=== PATIENT | male | born 1955 | race American Indian/Alaskan Native ===

== ENCOUNTER 2016-10-12 11:42 | Emergency (ER) | payer SELFPAY ==
[2016-10-12 13:16] LABS: Hematocrit 41.6 % (35.5-45.6); Hemoglobin 13.7 gm/dl (11.8-15.2); Mean Corpuscular HGB Conc 33 % (32-34); Mean Corpuscular Hemoglobin 29 pg (28-32); Mean Corpuscular Volume 89 fl (84-94); Platelet Count 175 K/mm3 (140-440); Red Cell Distribution Width 16.3 % (13.2-15.2); White Blood Count 4.6 K/mm3 (4.5-11.0)
[2016-10-12 13:28] LABS: Anion Gap 15 mmol/L; Blood Urea Nitrogen 27 mg/dL (9-20); Calcium 9.2 mg/dL (8.4-10.2); Carbon Dioxide 26 mmol/L (22-30); Chloride 101.5 mmol/L (98-107); Glucose 84 mg/dL (75-100); Potassium 4.7 mmol/L (3.6-5.0); Sodium 138 mmol/L (137-145)
[2016-10-12 13:50] LABS: Blastocytes % (Manual) 0 %
[2016-10-12 13:51] LABS: Anisocytosis 1+; Diff Status Complete; Giant Platelets Few; Ovalocytes 1+
[2016-10-12] MEDS ORDERED: PERCOCET 5/325 PO ONE (16:48)
[2016-10-12] MEDS ORDERED: CATAPRES PO ONE (16:48)
--- NOTE | 2016-10-12 17:36 | Emergency Department Report ---
ED Back Pain/Injury HPI - General Chief Complaint: Chest Pain Stated Complaint: CHEST PAIN Time Seen by Provider: 10/12/16 16:18 Source: patient Limitations: No Limitations - History of Present Illness Initial Comments: 61-year-old male with a past medical history hypertension and cardiac stent presents to the hospital complains of lower back pain and right-sided chest pain. Patient has been having lower back pain. Past 5 days. Pain is constant , aching, rated 10/10 intensity. Pain is with palpation and movement. No alleviating factors. Patient taken lots of NSAIDs/Advil without improvement. Patient denies dysuria, hematuria, leg weakness, numbness, nausea, incontinence , or vomiting. Patient states last night he began having right-sided chest pain with lower back pain episodes. Patient did not have his blood pressure medicine today he cannot recall the name. - Related Data Home Medications Medication Instructions Recorded Confirmed Last Taken Lisinopril [Zestril] 20 mg PO QDAY 10/12/16 10/12/16 10/11/16 Previous Rx's Medication Instructions Recorded Last Taken Type HYDROcodone/APAP 5-325 [Schwertner 1 each PO Q6HR PRN #20 tablet 10/12/16 Unknown Rx 5/325] Allergies Allergy/AdvReac Type Severity Reaction Status Date / Time No Known Allergies Allergy Unverified 10/12/16 11:56 ED Review of Systems ROS: Stated complaint: CHEST PAIN Other details as noted in HPI Comment: All other systems reviewed and negative Other: Constitutional: No fevers chills Eyes: No eye pain visual changes ENT: No ear pain or throat pain Neck: Denies pain Respiratory: Denies cough wheezing shortness of breath Cardiovascular: Denies palpitations, syncope GI: Denies abdominal pain, nausea, vomiting, diarrhea : Denies dysuria, Musculoskeletal: as per hpi Skin: Denies rash, lesions, erythema Neurologic: Denies headache, numbness, weakness Psychiatric: Denies suicidal ideation, hallucinations ED Past Medical Hx - Past Medical History Hx Hypertension: Yes - Surgical History Additional Surgical History: Cardiac Stent - Social History Smoking Status: Never Smoker Substance Use Type: Alcohol - Medications Home Medications: Home Medications Medication Instructions Recorded Confirmed Last Taken Type HYDROcodone/APAP 5-325 [Schwertner 1 each PO Q6HR PRN #20 tablet 10/12/16 Unknown Rx 5/325] Lisinopril [Zestril] 20 mg PO QDAY 10/12/16 10/12/16 10/11/16 History ED Physical Exam - General Limitations: No Limitations - Other Other exam information: General: No limitations, patient is alert in no acute distress Head exam: Atraumatic, normocephalic Eyes exam: Normal appearance ENT: Moist mucous membrane, normal oropharynx Neck exam: Normal inspection, full range of motion, no meningismus nontender Respiratory exam: Clear to auscultation bilateral, no wheezes, rales, crackles Cardiovascular: Normal rate and rhythm, normal heart sounds Abdomen: Soft, nondistended, and nontender, with normal bowel sounds, no rebound, or guarding Extremity: Full range of motion normal inspection no deformity, no calf tenderness or edema Back: Normal Inspection, full range of motion, generalized lower back tenderness across back and midline Neurologic: Alert, oriented x3, cranial nerves intact, no motor or sensory deficit Psychiatric: normal affect, normal mood Skin: Warm, dry, intact ED Course Vital Signs 10/12/16 10/12/16 10/12/16 11:56 15:23 15:28 Temperature 98.6 F Pulse Rate 80 82 74 Respiratory 18 11 L 16 Rate Blood Pressure 174/102 144/86 O2 Sat by Pulse 99 Oximetry 10/12/16 10/12/16 10/12/16 15:30 15:40 15:50 Temperature Pulse Rate 71 74 71 Respiratory 14 16 14 Rate Blood Pressure 145/83 145/83 145/83 O2 Sat by Pulse Oximetry 10/12/16 10/12/16 10/12/16 16:00 16:10 16:20 Temperature Pulse Rate 72 71 79 Respiratory 15 15 16 Rate Blood Pressure 145/83 153/88 153/88 O2 Sat by Pulse Oximetry 10/12/16 10/12/16 10/12/16 16:30 16:40 16:56 Temperature Pulse Rate 69 80 Respiratory 15 21 15 Rate Blood Pressure 153/88 173/100 173/100 O2 Sat by Pulse Oximetry 10/12/16 10/12/16 10/12/16 17:00 17:05 17:31 Temperature Pulse Rate 75 80 78 Respiratory 12 13 Rate Blood Pressure 173/100 171/100 173/120 O2 Sat by Pulse Oximetry 10/12/16 10/12/16 10/12/16 17:40 17:50 18:00 Temperature Pulse Rate 80 75 73 Respiratory 14 13 15 Rate Blood Pressure 173/120 173/120 181/123 O2 Sat by Pulse Oximetry 10/12/16 10/12/16 10/12/16 18:10 18:20 18:44 Temperature Pulse Rate 75 76 82 Respiratory 15 15 16 Rate Blood Pressure 150/93 150/93 112/57 O2 Sat by Pulse Oximetry 10/12/16 18:50 Temperature Pulse Rate 79 Respiratory 14 Rate Blood Pressure 112/57 O2 Sat by Pulse Oximetry - Reevaluation(s) Reevaluation #1: 10/12/16 20:10 PT received Percocet and clonidine with improvement in symptoms. Systolic pressure in the 130s at this time ED Medical Decision Making - Lab Data Result diagrams: 10/12/16 12:38 10/12/16 12:38 Lab Results 10/12/16 10/12/16 10/12/16 Range/Units 12:38 12:38 15:14 WBC 4.6 (4.5-11.0) K/mm3 RBC 4.70 (3.65-5.03) M/mm3 Hgb 13.7 (11.8-15.2) gm/dl Hct 41.6 (35.5-45.6) % MCV 89 (84-94) fl MCH 29 (28-32) pg MCHC 33 (32-34) % RDW 16.3 H (13.2-15.2) % Plt Count 175 (140-440) K/mm3 Lymph % (Auto) [employer] Machine Setter Add Manual Diff Complete Total Counted 100 Seg Neutrophils % [employer] Setter Seg Neuts % (Manual) 22.0 L (40.0-70.0) % Band Neutrophils % 0 % Lymphocytes % (Manual) 66.0 H (13.4-35.0) % Reactive Lymphs % (Man) 0 % Monocytes % (Manual) 5.0 (0.0-7.3) % Eosinophils % (Manual) 6.0 H (0.0-4.3) % Basophils % (Manual) 1.0 (0.0-1.8) % Metamyelocytes % 0 % Myelocytes % 0 % Promyelocytes % 0 % Blast Cells % 0 % Nucleated RBC % Not Reportable Seg Neutrophils # Man 1.0 L (1.8-7.7) K/mm3 Band Neutrophils # 0.0 K/mm3 Lymphocytes # (Manual) 3.0 (1.2-5.4) K/mm3 Abs React Lymphs (Man) 0.0 K/mm3 Monocytes # (Manual) 0.2 (0.0-0.8) K/mm3 Eosinophils # (Manual) 0.3 (0.0-0.4) K/mm3 Basophils # (Manual) 0.0 (0.0-0.1) K/mm3 Metamyelocytes # 0.0 K/mm3 Myelocytes # 0.0 K/mm3 Promyelocytes # 0.0 K/mm3 Blast Cells # 0.0 K/mm3 WBC Morphology Not Reportable Hypersegmented Neuts Not Reportable Hyposegmented Neuts Not Reportable Hypogranular Neuts Not Reportable Smudge Cells Not Reportable Toxic Granulation Not Reportable Toxic Vacuolation Not Reportable Dohle Bodies Not Reportable Pelger-Huet Anomaly Not Reportable Dana Rods Not Reportable Platelet Estimate Appears normal Clumped Platelets Not Reportable Plt Clumps, EDTA Not Reportable Large Platelets Not Reportable Giant Platelets Few Platelet Satelliting Not Reportable Plt Morphology Comment Not Reportable RBC Morphology Not Reportable Dimorphic RBCs Not Reportable Polychromasia Not Reportable Hypochromasia Not Reportable Poikilocytosis Not Reportable Anisocytosis 1+ Microcytosis Not Reportable Macrocytosis Not Reportable Spherocytes Not Reportable Pappenheimer Bodies Not Reportable Sickle Cells Not Reportable Target Cells Not Reportable Tear Drop Cells Not Reportable Ovalocytes 1+ Helmet Cells Not Reportable [place] Bodies Not Reportable [place] Rings Not Reportable Reji Cells Not Reportable Bite Cells Not Reportable Crenated Cell Not Reportable Elliptocytes Not Reportable Acanthocytes (Spur) Not Reportable Rouleaux Not Reportable Hemoglobin C Crystals Not Reportable Schistocytes Not Reportable Malaria parasites Not Reportable Rufino Bodies Not Reportable Hem Pathologist Commnt No Sodium 138 (137-145) mmol/L Potassium 4.7 (3.6-5.0) mmol/L Chloride 101.5 (98-107) mmol/L Carbon Dioxide 26 (22-30) mmol/L Anion Gap 15 mmol/L BUN 27 H (9-20) mg/dL Creatinine 1.8 H (0.8-1.5) mg/dL Estimated GFR 47 ml/min BUN/Creatinine Ratio 15.00 % Glucose 84 (75-100) mg/dL Calcium 9.2 (8.4-10.2) mg/dL Troponin T < 0.010 < 0.010 (0.00-0.029) ng/mL Urine Color (Yellow) Urine Turbidity (Clear) Urine pH (5.0-7.0) Ur Specific [place] (1.003-1.030) Urine Protein (Negative) mg/dL Urine Glucose (UA) (Negative) mg/dL Urine Ketones (Negative) mg/dL Urine Blood (Negative) Urine Nitrite (Negative) Urine Bilirubin (Negative) Urine Urobilinogen (<2.0) mg/dL Ur Leukocyte Esterase (Negative) Urine WBC (Auto) (0.0-6.0) /HPF Urine RBC (Auto) (0.0-6.0) /HPF U Epithel Cells (Auto) (0-13.0) /HPF Urine Mucus /HPF 10/12/ Range/Units 18:44 WBC (4.5-11.0) K/mm3 RBC (3.65-5.03) M/mm3 Hgb (11.8-15.2) gm/dl Hct (35.5-45.6) % MCV (84-94) fl MCH (28-32) pg MCHC (32-34) % RDW (13.2-15.2) % Plt Count (140-440) K/mm3 Lymph % (Auto) Add Manual Diff Total Counted Seg Neutrophils % Seg Neuts % (Manual) (40.0-70.0) % Band Neutrophils % % Lymphocytes % (Manual) (13.4-35.0) % Reactive Lymphs % (Man) % Monocytes % (Manual) (0.0-7.3) % Eosinophils % (Manual) (0.0-4.3) % Basophils % (Manual) (0.0-1.8) % Metamyelocytes % % Myelocytes % % Promyelocytes % % Blast Cells % % Nucleated RBC % Seg Neutrophils # Man (1.8-7.7) K/mm3 Band Neutrophils # K/mm3 Lymphocytes # (Manual) (1.2-5.4) K/mm3 Abs React Lymphs (Man) K/mm3 Monocytes # (Manual) (0.0-0.8) K/mm3 Eosinophils # (Manual) (0.0-0.4) K/mm3 Basophils # (Manual) (0.0-0.1) K/mm3 Metamyelocytes # K/mm3 Myelocytes # K/mm3 Promyelocytes # K/mm3 Blast Cells # K/mm3 WBC Morphology Hypersegmented Neuts Hyposegmented Neuts Hypogranular Neuts Smudge Cells Toxic Granulation Toxic Vacuolation Dohle Bodies Pelger-Huet Anomaly Dana Rods Platelet Estimate Clumped Platelets Plt Clumps, EDTA Large Platelets Giant Platelets Platelet Satelliting Plt Morphology Comment RBC Morphology Dimorphic RBCs Polychromasia Hypochromasia Poikilocytosis Anisocytosis Microcytosis Macrocytosis Spherocytes Pappenheimer Bodies Sickle Cells Target Cells Tear Drop Cells Ovalocytes Helmet Cells [place] Bodies [place] Rings Reji Cells Bite Cells Crenated Cell Elliptocytes Acanthocytes (Spur) Rouleaux Hemoglobin C Crystals Schistocytes Malaria parasites Rufino Bodies Hem Pathologist Commnt Sodium (137-145) mmol/L Potassium (3.6-5.0) mmol/L Chloride (98-107) mmol/L Carbon Dioxide (22-30) mmol/L Anion Gap mmol/L BUN (9-20) mg/dL Creatinine (0.8-1.5) mg/dL Estimated GFR ml/min BUN/Creatinine Ratio % Glucose (75-100) mg/dL Calcium (8.4-10.2) mg/dL Troponin T (0.00-0.029) ng/mL Urine Color Yellow (Yellow) Urine Turbidity Clear (Clear) Urine pH 6.0 (5.0-7.0) Ur Specific [place] 1.025 (1.003-1.030) Urine Protein 100 mg/dl (Negative) mg/dL Urine Glucose (UA) Neg (Negative) mg/dL Urine Ketones Neg (Negative) mg/dL Urine Blood Neg (Negative) Urine Nitrite Neg (Negative) Urine Bilirubin Neg (Negative) Urine Urobilinogen < 2.0 (<2.0) mg/dL Ur Leukocyte Esterase Neg (Negative) Urine WBC (Auto) 1.0 (0.0-6.0) /HPF Urine RBC (Auto) 2.0 (0.0-6.0) /HPF U Epithel Cells (Auto) < 1.0 (0-13.0) /HPF Urine Mucus Few /HPF - EKG Data -: EKG Interpreted by Me (sinus rate 82, Pac, lvh lat t wave inv) - EKG Data When compared to previous EKG there are: no significant change (compared to 19/05) - Radiology Data Radiology results: report reviewed (ct abd pelvis noncontrast: naf), image reviewed (cxr pa/lat: naf) - Medical Decision Making Patient's CT unremarkable. Patient downplays his right-sided chest pain stating that it is mostly his back that hurts upon requestioning patient states right sided chest pain is mild and only associated with his extreme back pain episodes. EKG is unchanged from previous and patient has 3 negative sets of cardiac enzymes and denies left-sided chest pain or shortness of breath. Back Pain is reproducible on palpation and with movement. Suspect this is musculoskeletal in origin. Patient also has mild renal sufficiency chronicity unknown. No previous creatinine on medical record for comparison but patient denies a known history of renal insufficiency. Patient be advised to follow-up with primary care doctor Dr. Hudson and also provided follow-up for food checker. Patient be advised to stop NSAIDs and will be prescribed hydrocodone instead. She states he takes 5 medications but cannot recall any of the names but does admit to taking aspirin and Plavix. - Differential Diagnosis aortic aneurysm, dissection, musculoskeletal pain, renal colic, UTI Critical Care Time: No Critical care attestation.: If time is entered above; I have spent that time in minutes in the direct care of this critically ill patient, excluding procedure time. ED Disposition Clinical Impression: Renal insufficiency Lower back pain Qualifiers: Chronicity: acute Back pain laterality: bilateral Sciatica presence: without sciatica Qualified Code(s): M54.5 - Low back pain Hypertension Qualifiers: Hypertension type: essential hypertension Qualified Code(s): I10 - Essential ( primary) hypertension Disposition: DISCHARGED TO HOME OR SELFCARE Is pt being admited?: No Does the pt Need Aspirin: No Condition: Stable Instructions: Low Back Strain (ED), Hypertension (ED), Impaired Kidney Function (ED) Additional Instructions: Take the medication as needed for pain. Follow-up with her primary care doctor and the food checker provided for further evaluation of your kidney function. You had provided a copy of the lab results to take to your doctors for follow- up. Avoid NSAIDs, Aleve, and Naprosyn, or Motrin until cleared by your primary care doctor and/or food checker since these medications may worsen kidney function. Prescriptions: HYDROcodone/APAP 5-325 [Schwertner 5/325] 1 each PO Q6HR PRN #20 tablet PRN Reason: Pain Referrals: RENATE VANEGAS MD [Staff Physician] - 3-5 Days (Nephrology) CARMEN HUDSON MD [Staff Physician] - 3-5 Days (primary care doctor ) Time of Disposition: 20:10
--- NOTE | 2016-10-12 18:57 | Cat Scan Report ---
FINAL REPORT PROCEDURE: CT abdomen and pelvis without contrast. TECHNIQUE: Computerized axial tomography of the abdomen and pelvis was performed without intravenous contrast. This study is performed without intravascular contrast material and its sensitivity for abdominal and pelvic pathology, including neoplasms, inflammation, abscess, free fluid, thrombosis, arterial dissection and infarction, is reduced compared with a contrast enhanced study. HISTORY: Right-sided chest and abdomen pain, lower back pain for 5 days. COMPARISON: No prior studies are available for comparison. FINDINGS: The lung bases are clear. There are no pleural effusions. The heart size is mildly enlarged. The liver, spleen and pancreas are grossly normal. The gallbladder is present. The adrenal glands are not enlarged. Both kidneys appear normal in size and configuration. There are no renal calcifications. There is no hydronephrosis. The abdominal aorta has a normal caliber. There is no retroperitoneal adenopathy. The unopacified gastrointestinal tract is unremarkable. A normal appendix is visible. The bladder, seminal vesicles and prostate appear normal. The regional skeleton appears intact. There is a mild thoracolumbar scoliosis. IMPRESSION: No definite signs of acute disease in the abdomen or pelvis.
[2016-10-12 19:12] LABS: Bilirubin,Urine NEG (Negative); Blood,Urine NEG (Negative); Ketones,Urine NEG (Negative); Leukocyte Esterase,Urine NEG (Negative); Mucus,Urine FEW /HPF; Nitrite,Urine NEG (Negative); Urobilinogen,Urine < 2.0 mg/dL (<2.0)
[2016-10-12 20:40] VITALS: BP 115/78
--- NOTE | 2016-10-13 10:42 | XRay Report ---
CHEST TWO VIEWS: 10/12/16 17:18 CLINICAL: Right-sided chest pain. COMPARISON: 06/18/10 FINDINGS: Mild cardiomegaly and central vascular congestion. Mild aortic tortuosity. The lungs are normally expanded and clear.The bones and soft tissues are normal. IMPRESSION: Mild cardiomegaly and pulmonary venous hypertension. No pulmonary edema.
== END 2016-10-12 20:41 | disposition home or self-care (01) ==
LOC: ED 11:42
DX: N28.9 Disorder of kidney and ureter, unspecified (principal); M54.5 Low back pain; I10 Essential (primary) hypertension
CPT/HCPCS: 36415; 71020; 74176; 80048; 81001; 84484; 85007; 85025; 93005; 93010

== ENCOUNTER 2017-10-06 12:21 | Day surgery (SDC) | payer OTHER ==
[2017-10-06] MEDS ORDERED: NACL 0.9% 1000 ML 1,000 ML IV SCH (13:00)
[2017-10-06] MEDS ORDERED: DIPRIVAN 10 MG/ML IV ONE ×2 (15:40)
--- NOTE | 2017-10-06 16:32 | Post Anesthesia Evaluation ---
- Post Anesthesia Evaluation Patient Participated: Yes Airway Patent: Yes Stable Respiratory Function: Yes Nausea/Vomiting: No Temp > 96.8F: Yes Pain Manageable: Yes Adequeate Hydration: Yes Anesthesia Complications: No
[2017-10-06 16:36] VITALS: BP 158/83
--- NOTE | 2017-10-06 16:37 | Discharge Summary ---
Short Stay Discharge Plan Activity: advance as tolerated Weight Bearing Status: Weight Bear as Tolerated Diet: regular Additional Instructions: Post Sedation D/C Instructions When you return home you may resume your regular diet unless otherwise directed. -Go directly home from the hospital and rest quietly. You may resume normal activities tomorrow. -Do NOT drive, return to work, operate any machinery or make any important personal or business decisions today. -Do NOT drink any alcohol or take nerve or sleeping drugs. They add to the effects of the medicine still present in your body. Follow up with Dr. Zarate to obtain pathology results and treatment plan. Follow up with: CARMEN HUDSON MD [Primary Care Provider] - 7 Days
--- NOTE | 2017-10-06 16:37 | Operative Report ---
Operative Report Operative Report: Date of procedure: 09/22/2017 Procedure: Colonoscopy with cold snare polypectomy and Hemoclip application. Attending physician: Amarjit Zarate MD Labor Representative: Amarjit Zarate MD Indication: Patient is a 62-year-old male who presents for colonoscopy for colorectal cancer screening. A colonoscopy is now to evaluate patient so that treatment may be directed based on the findings. Consent: Informed consent was obtained after advising the patient and family regarding nature of this procedure, its indications, potential benefits as well as possible complications including but not limited to bleeding perforation and adverse reaction to medication, infection as well as other cardiopulmonary complications. An informed written and verbal consent was then obtained after due opportunity was provided for questions and answers. Monitoring: Patient was monitored continuously with pulse oximetry and electrocardiographic recordings as well as blood pressure recordings. Vital signs remained stable throughout this procedure with no untoward events. Preoperative assessment: Patient was assessed immediately prior to this procedure for capacity to tolerate monitored anesthesia care and moderate sedation as well as general anesthesia. Patient's ASA classification is 2, Mallampati class is 2, Hyomental distance is 3. Instrument: [employer] video colonoscope Medications: Propofol given intravenously in divided doses. For details please refer to anesthesia records. Description of procedure: Patient was placed in the left lateral decubitus position after achieving sedation, a digital rectal examination was performed following which the colonoscope was introduced into the anal verge and advanced to the cecum which was identified by the ileocecal valve, the appendiceal orifice, as well as by the cecal strap and direct transillumination. The colonoscope was subsequently withdrawn with careful inspection of all mucosal surfaces. Patient tolerated this procedure well and was subsequently taken to the recovery room. The following findings were noted. Findings: The preparation was fair. There was a sessile 7-8 mm polyp in the sigmoid colon, this was removed by cold snare polypectomy. The defect created by the removal was closed with a Hemoclip. There were a few scattered diverticula seen in the sigmoid and descending colon. On the retroflex view at the anal verge, patient had prominent internal hemorrhoids. Impression: Mild colonic diverticulosis Sigmoid colon polyp status post cold snare polypectomy and Hemoclip application Internal hemorrhoids Plan: Follow pathology report High-fiber diet Repeat colonoscopy in 5 years if polyp is adenomatous.
== END 2017-10-06 12:22 | disposition home or self-care (01) ==
LOC: GIO 12:21
PROVIDERS: ATTEND Internal Medicine Gastroenterology
DX: D12.5 Benign neoplasm of sigmoid colon (principal); K57.30 Diverticulosis of large intestine without perforation or abscess without bleeding; K62.5 Hemorrhage of anus and rectum; K64.8 Other hemorrhoids; I10 Essential (primary) hypertension
CPT/HCPCS: 45385; 88305; J2704

== ENCOUNTER 2019-04-26 06:07 | Day surgery (SDC) | payer OTHER ==
[2019-04-26] MEDS ORDERED: ASPIRIN EC 325 MG TAB PO ONE (06:26)
[2019-04-26] MEDS ORDERED: SODIUM CHLORIDE 0.9% 500 ML 500 ML IV SCH (07:00)
[2019-04-26 07:04] LABS: Eosinophils # (Auto) 0.2 K/mm3 (0.0-0.4); Eosinophils % (Auto) 5.8 % (0.0-4.3); Hemoglobin 13.3 gm/dl (11.8-15.2); Lymphocytes # (Auto) 1.6 K/mm3 (1.2-5.4); Lymphocytes % (Auto) 46.3 % (13.4-35.0); Mean Corpuscular HGB Conc 33 % (32-34); Mean Corpuscular Volume 91 fl (84-94); Monocytes # (Auto) 0.4 K/mm3 (0.0-0.8); Monocytes % (Auto) 11.1 % (0.0-7.3); Platelet Count 167 K/mm3 (140-440); Red Blood Count 4.42 M/mm3 (3.65-5.03)
[2019-04-26 07:11] LABS: INR 1.03 (0.87-1.13)
[2019-04-26 08:05] LABS: BUN/Creatinine Ratio 14; Blood Urea Nitrogen 20 mg/dL (9-20); Calcium 9.2 mg/dL (8.4-10.2); Hemolysis Index 17
[2019-04-26] MEDS ORDERED: HEPARIN/NS 5000 UNIT/500ML 1,000 ML IR ONE (08:17)
[2019-04-26] MEDS ORDERED: LIDOCAINE (2%) 20 MG/1 ML VIAL 20 ML MDV INFILTRATI ONE (08:18)
[2019-04-26] MEDS ORDERED: fentaNYL 100 MCG/2 ML INJ ONE (08:19)
[2019-04-26] MEDS ORDERED: MIDAZOLAM 2 MG/2 ML INJ ONE (08:19)
[2019-04-26] MEDS: VERAPAMIL 5 MG/2 ML INJ ONE ×2 (08:50→08:52)
[2019-04-26] MEDS: HEPARIN 10,000 UNITS/10 ML VIAL ONE ×2 (08:50→08:52)
[2019-04-26] MEDS: NITROGLYCERIN SYRINGE 3 ML ONE ×2 (08:51→08:52)
--- NOTE | 2019-04-26 09:32 | Cardiac Catherization Report ---
LEFT HEART CATHETERIZATION ORDERING PHYSICIAN: Dr. Dickson. CLINICAL INFORMATION: This is a 63-year-old [place] gentleman, in 2007 had PCI of the LAD, presents to Dr. Dickson with exertional anginal symptoms with apical infarction and fixed defect with [id number] mitral regurgitation. In view of symptomatology, he is here for left heart catheterization. The patient was done under moderate sedation. Total sedation time was 17 minutes, started at 8:45 a.m., finished at 9:02 a.m., 1 mg Versed, 50 mcg of fentanyl. Procedure was done via the right radial artery, sterile technique, local anesthesia, 6-Swazi radial sheath inserted. Left system engaged with JL3.5 catheter. FINDINGS: 1. Left main large and patent, and trifurcates into large LAD. The stent goes from the ostial to the mid portion across the large diagonal 1, which is patent. Right after the diagonal 1, there is in-stent restenosis, approximately 95% with MILAD 3 flow. Circumflex is a large caliber vessel. OM1 is a large caliber vessel, patent. OM2 is a large caliber vessel, patent. OM3 is a small to medium caliber vessel that is patent and AV groove. RCA engaged with JR4 catheter, is a large dominant vessel, it is patent with small PDA, PLV are patent. LV gram done in SCOTTISH view shows mild LV dysfunction, EF approximately 45%. LVEDP at 30 mmHg, LV is 138 mmHg. Aortic is 135/77 mmHg. No significant gradient across the aortic valve on pullback. A 5-Swazi catheter was all taken over guidewire, 6-Swazi radial sheath was discontinued. Radial band applied. No hematoma, no bleeding. SUMMARY: Left main patent, LAD proximal stent patent, but the mid portion of the stent, right after a large diagonal 1 which is patent, has an in-stent restenosis 95%. Rest of the LAD is a medium to large caliber vessel that is patent. Circumflex is a large caliber vessel that is patent. OM1 is a large caliber vessel, patent. OM2 is a medium caliber vessel, patent. OM3 is a small to medium caliber vessel, patent. RCA is a large dominant vessel, patent. PDA and PLV are small caliber vessels, patent with mild LV dysfunction, on echocardiogram shows [id number] mitral regurgitation. The patient will have an evaluation for PATTERSON to LAD and mitral valve repair or replacement, and discussed with the patient in detail. JOB# [id number] SHEN/CEDRIC
[2019-04-26] MEDS ORDERED: traMADol 50 MG TAB PO PRN (09:36)
--- NOTE | 2019-04-26 09:40 | Short Stay Summary ---
Short Stay Documentation Date of service: 04/26/19 - History H&P: obtained from office - Allergies and Medications Current Medications: Allergies No Known Allergies Allergy (Unverified 10/12/16 11:56) Home Medications Medication Instructions Recorded Confirmed Last Taken Type Metoprolol [Lopressor TAB] 50 mg PO DAILY 10/06/17 04/26/19 04/26/19 05:30 History Aspirin [Adult Aspirin] 81 mg PO DAILY 04/26/19 04/26/19 5 Days Ago History ~04/21/19 Atorvastatin [Lipitor Tab] 80 mg PO DAILY 04/26/19 04/26/19 04/26/19 05:30 History Doxazosin [Cardura] 2 mg PO QDAY 04/26/19 04/26/19 04/26/19 05:30 History NIFEdipine [Nifedipine ER] 60 mg PO DAILY 04/26/19 04/26/19 04/26/19 05:30 History Nitroglycerin [Nitrostat] 0.4 mg SL Q5M PRN 04/26/19 04/26/19 Unknown History Active Medications Sodium Chloride (Nacl 0.9% 500 Ml) 500 mls @ 50 mls/hr IV DIRECT JOSE G Stop: 04/26/19 16:59 Last Admin: 04/26/19 07:01 Dose: 50 mls/hr Documented by: - Brief post op/procedure progress note Date of procedure: 04/26/19 Pre-op diagnosis: angina and MR Post-op diagnosis: same Procedure: see report Anesthesia: local Estimated blood loss: none Pathology: none - Disposition Condition at discharge: Good Disposition: DC-01 TO HOME OR SELFCARE - Discharge Diagnoses (1) Angina of effort Status: Acute (2) Mitral regurgitation Status: Acute Qualifiers: Cardiac valve disease etiology: nonrheumatic Qualified Code(s): I34.0 - Nonrheumatic mitral (valve) insufficiency (3) Hypertension Status: Chronic Qualifiers: Hypertension type: essential hypertension Qualified Code(s): I10 - Essential (primary) hypertension (4) Hyperlipemia, mixed Status: Chronic (5) CAD (coronary artery disease) Status: Acute Qualifiers: Coronary Disease-Associated Artery/Lesion type: ruby artery Associated angina: with stable angina Short Stay Discharge Plan Activity: advance as tolerated Diet: low fat, low cholesterol, low salt Wound: keep clean and dry Follow up with: ACRMEN HUDSON MD [Primary Care Provider] - 7 Days
[2019-04-26 12:49] VITALS: BP 124/74
== END 2019-04-26 12:30 | disposition home or self-care (01) ==
LOC: CATHLABREC 06:07
PROVIDERS: ATTEND Internal Medicine
DX: I25.118 Atherosclerotic heart disease of native coronary artery with other forms of angina pectoris (principal); I34.0 Nonrheumatic mitral (valve) insufficiency; I10 Essential (primary) hypertension; E78.2 Mixed hyperlipidemia; I42.9 Cardiomyopathy, unspecified; M19.90 Unspecified osteoarthritis, unspecified site; T82.855A Stenosis of coronary artery stent, initial encounter; Z79.899 Other long term (current) drug therapy; Z79.82 Long term (current) use of aspirin; Z98.890 Other specified postprocedural states; Z95.5 Presence of coronary angioplasty implant and graft; Y83.8 Other surgical procedures as the cause of abnormal reaction of the patient, or of later complication, without mention of misadventure at the time of the procedure; Y92.89 Other specified places as the place of occurrence of the external cause
CPT/HCPCS: 36415; 80048; 85025; 85610; 85730; 93005; 93010; 93458; 99156; C1894; J1644; J2250; J3010; J7040; Q9967

== ENCOUNTER 2019-07-06 13:22 | Emergency (ER) | payer OTHER ==
[2019-07-06 14:00] VITALS: BP 186/126
--- NOTE | 2019-07-06 14:27 | Event Note ---
ED Screening Note Date of service: 07/06/19 Time: 14:02 ED Screening Note: 64 yo male c/o cough congestion restlessness started last night. Denies chest pain and sob . S/p By pass surgery approx 1 month ago at [facility]. FLU shot up to date. This initial assessment/diagnostic orders/clinical plan/treatment(s) is/are subject to change based on patients health status, clinical progression and re- assessment by fellow clinical providers in the ED. Further treatment and workup at subsequent clinical providers discretion. Patient/guardian urged not to elope from the ED as their condition may be serious if not clinically assessed and managed. Initial orders include:
== END 2019-07-06 14:30 | disposition left against medical advice (07) ==
LOC: ED 13:22
DX: R06.02 Shortness of breath (principal); Z53.21 Procedure and treatment not carried out due to patient leaving prior to being seen by health care provider
CPT/HCPCS: 93005; 93010

== ENCOUNTER 2019-07-09 10:06 | Emergency (ER) | payer OTHER ==
--- NOTE | 2019-07-09 10:53 | XRay Report ---
CHEST 1 VIEW INDICATION: Dyspnea. COMPARISON: 10/12/2016. FINDINGS: Support devices: Interval median sternotomy with placement of valvular prosthesis, suspect mitral. Heart: Mildly large, but stable. Lungs/Pleura: No acute air space or interstitial disease. Additional findings: There is slight dextroconvex curvature of the lower thoracic and upper lumbar sp ine. IMPRESSION: No evidence of acute cardiopulmonary disease. Signer Name: Romeo Rebolledo MD Signed: 07/09/2019 10:48 AM Workstation Name: [id number]
[2019-07-09 11:31] LABS: Basophils % (Auto) 0.7 % (0.0-1.8); Eosinophils # (Auto) 0.2 K/mm3 (0.0-0.4); Eosinophils % (Auto) 3.4 % (0.0-4.3); Hematocrit 34.7 % (35.5-45.6); Hemoglobin 11.8 gm/dl (11.8-15.2); Lymphocytes # (Auto) 2.2 K/mm3 (1.2-5.4); Lymphocytes % (Auto) 37.7 % (13.4-35.0); Mean Corpuscular HGB Conc 34 % (32-34); Mean Corpuscular Volume 89 fl (84-94); Monocytes # (Auto) 0.6 K/mm3 (0.0-0.8); Monocytes % (Auto) 9.6 % (0.0-7.3); Platelet Count 188 K/mm3 (140-440); Red Blood Count 3.89 M/mm3 (3.65-5.03); Red Cell Distribution Width 15.7 % (13.2-15.2)
[2019-07-09 11:43] LABS: INR 1.15 (0.87-1.13)
[2019-07-09 11:48] LABS: Creatine Kinase MB 1.5 ng/mL (0.0-4.0)
[2019-07-09 11:50] LABS: Alanine Aminotransferase 20 units/L (7-56); BUN/Creatinine Ratio 11; Blood Urea Nitrogen 17 mg/dL (9-20); Calcium 9.5 mg/dL (8.4-10.2); Hemolysis Index 19
[2019-07-09 11:55] LABS: Bilirubin,Direct < 0.2 mg/dL (0-0.2)
[2019-07-09 12:01] LABS: Chol/HDL Ratio 2.82 %; HDL Cholesterol 45 mg/dL (40-59); LDL Cholesterol,Direct 81 mg/dL (50-130)
--- NOTE | 2019-07-09 12:14 | Emergency Department Report ---
ED General Adult HPI - General Chief complaint: Dyspnea/Respdistress Stated complaint: DISORIENTED Time Seen by Provider: 07/09/19 10:21 Source: patient Mode of arrival: Ambulatory Limitations: No Limitations - History of Present Illness Initial comments: 64-year-old male presents with very nonspecific complaints. I think it could be distilled to lyse weakness, excessive stress, loss of sleep and some generalized weakness. The patient is on an anticoagulant. He states he feels disoriented. However he is indicating that this is more generalized weakness. He states he knows well where he is and he is actually having no difficulty comprehending. He denies headache and has had no signs of bleeding. He states he's had difficulty sleeping for the last 3 days. She has a history of mitral valve replacement, coronary artery disease and cardiomyopathy. -: Gradual, days(s) Associated Symptoms: denies other symptoms - Related Data Home Medications Medication Instructions Recorded Confirmed Last Taken Metoprolol [Lopressor TAB] 50 mg PO DAILY 10/06/17 04/26/19 04/26/19 05:30 Aspirin [Adult Aspirin] 81 mg PO DAILY 04/26/19 04/26/19 5 Days Ago ~04/21/19 Atorvastatin [Lipitor] 80 mg PO DAILY 04/26/19 04/26/19 04/26/19 05:30 Doxazosin [Cardura] 2 mg PO QDAY 04/26/19 04/26/19 04/26/19 05:30 NIFEdipine [Nifedipine ER] 60 mg PO DAILY 04/26/19 04/26/19 04/26/19 05:30 Nitroglycerin [Nitrostat] 0.4 mg SL Q5M PRN 04/26/19 04/26/19 Unknown Previous Rx's Medication Instructions Recorded Last Taken Type ISOSORBIDE MONOnitrate [Imdur ER] 30 mg PO DAILY #30 tab.er.24h 04/26/19 Unknown Rx Magnesium 200 mg PO DAILY #30 tablet 07/09/19 Unknown Rx Potassium Chloride 8 meq PO DAILY #30 capsule.er 07/09/19 Unknown Rx Allergies Allergy/AdvReac Type Severity Reaction Status Date / Time No Known Allergies Allergy Verified 07/09/19 10:10 ED Review of Systems ROS: Stated complaint: DISORIENTED Other details as noted in HPI Constitutional: weakness. denies: chills, fever Eyes: denies: eye pain, eye discharge, vision change ENT: denies: ear pain, throat pain Respiratory: denies: cough, wheezing Cardiovascular: denies: chest pain, palpitations Endocrine: no symptoms reported Gastrointestinal: denies: abdominal pain, nausea, diarrhea Genitourinary: denies: urgency, dysuria Musculoskeletal: denies: back pain, joint swelling, arthralgia Skin: denies: rash, lesions Neurological: as per HPI. denies: headache, weakness, paresthesias Psychiatric: as per HPI, anxiety. denies: depression Hematological/Lymphatic: denies: easy bleeding, easy bruising ED Past Medical Hx - Past Medical History Hx Hypertension: Yes Hx Heart Attack/AMI: No Hx Deep Vein Thrombosis: No Hx Arthritis: Yes Hx HIV: No - Surgical History Hx Coronary Stent: Yes (cardiac stent=1; 12/10/2011 LAD prox) Additional Surgical History: Cardiac Stent. CABG 05/2019 - Social History Smoking Status: Never Smoker Substance Use Type: None - Medications Home Medications: Home Medications Medication Instructions Recorded Confirmed Last Taken Type Metoprolol [Lopressor TAB] 50 mg PO DAILY 10/06/17 04/26/19 04/26/19 05:30 History Aspirin [Adult Aspirin] 81 mg PO DAILY 04/26/19 04/26/19 5 Days Ago History ~04/21/19 Atorvastatin [Lipitor] 80 mg PO DAILY 04/26/19 04/26/19 04/26/19 05:30 History Doxazosin [Cardura] 2 mg PO QDAY 04/26/19 04/26/19 04/26/19 05:30 History ISOSORBIDE MONOnitrate [Imdur ER] 30 mg PO DAILY #30 tab.er.24h 04/26/19 Unknown Rx NIFEdipine [Nifedipine ER] 60 mg PO DAILY 04/26/19 04/26/19 04/26/19 05:30 History Nitroglycerin [Nitrostat] 0.4 mg SL Q5M PRN 04/26/19 04/26/19 Unknown History Magnesium 200 mg PO DAILY #30 tablet 07/09/19 Unknown Rx Potassium Chloride 8 meq PO DAILY #30 capsule.er 07/09/19 Unknown Rx ED Physical Exam - General Limitations: No Limitations General appearance: alert, in no apparent distress - Head Head exam: Present: atraumatic, normocephalic - Eye Eye exam: Present: normal appearance. Absent: scleral icterus - ENT ENT exam: Present: mucous membranes moist - Neck Neck exam: Present: normal inspection. Absent: tenderness, meningismus - Respiratory Respiratory exam: Present: normal lung sounds bilaterally. Absent: respiratory distress - Cardiovascular Cardiovascular Exam: Present: regular rate, normal rhythm, systolic murmur. Absent: diastolic murmur, rubs, gallop - GI/Abdominal GI/Abdominal exam: Present: soft, normal bowel sounds. Absent: distended, tenderness, guarding, rebound, rigid - Rectal Rectal exam: Present: deferred - Extremities Exam Extremities exam: Present: normal inspection - Back Exam Back exam: Present: normal inspection - Neurological Exam Neurological exam: Present: alert, oriented X3, CN II-XII intact. Absent: motor sensory deficit - Psychiatric Psychiatric exam: Present: normal affect, normal mood - Skin Skin exam: Present: warm, dry, intact, normal color. Absent: rash ED Course Vital Signs 07/09/19 10:17 Temperature 98.8 F Pulse Rate 73 Respiratory 20 Rate Blood Pressure 142/87 O2 Sat by Pulse 99 Oximetry - Reevaluation(s) Reevaluation #1: Patient was observed in the emergency department. He rested comfortably. He was in no distress. He remained neurologically intact. He is given submental potassium and magnesium. His symptoms remained very nonspecific and apparently not disturbing. He requested something for sleep. He is referred back to Dr. Hudson for that. Her creatinine was reviewed. It is no cyanosis 1.8 in the past. 07/09/19 14:25 ED Medical Decision Making - Lab Data Result diagrams: 07/09/19 11:12 07/09/19 11:12 Laboratory Results - last 24 hr 07/09/19 07/09/19 07/09/19 11:12 11:12 11:12 WBC 5.7 RBC 3.89 Hgb 11.8 Hct 34.7 L MCV 89 MCH 30 MCHC 34 RDW 15.7 H Plt Count 188 Lymph % (Auto) 37.7 H Fajardo % (Auto) 9.6 H Eos % (Auto) 3.4 Baso % (Auto) 0.7 Lymph # 2.2 Fajardo # 0.6 Eos # 0.2 Baso # 0.0 Seg Neutrophils % 48.6 Seg Neutrophils # 2.8 PT 14.9 INR 1.15 H APTT 31.0 Sodium 137 Potassium 3.1 L Chloride 97.6 L Carbon Dioxide 25 Anion Gap 18 BUN 17 Creatinine 1.6 H Estimated GFR 53 BUN/Creatinine Ratio 11 Glucose 111 H Calcium 9.5 Magnesium 1.40 L Total Bilirubin 0.70 Direct Bilirubin < 0.2 Indirect Bilirubin 0.5 AST 29 ALT 20 Alkaline Phosphatase 68 Total Creatine Kinase 136 CK-MB (CK-2) 1.5 CK-MB (CK-2) Rel Index 1.1 Troponin T 0.040 H NT-Pro-B Natriuret Pep 280.4 Total Protein 8.3 H Albumin 4.0 Albumin/Globulin Ratio 0.9 Triglycerides 61 Cholesterol 127 LDL Cholesterol Direct 81 HDL Cholesterol 45 Cholesterol/HDL Ratio 2.82 - EKG Data -: EKG Interpreted by Me EKG shows normal: sinus rhythm, axis, intervals - EKG Data Interpretation: nonspecific ST-T wave dino, LVH, other (and PVC) - Radiology Data Radiology results: image reviewed Chest x-ray no acute process, CT of the head no acute process. Critical care attestation.: If time is entered above; I have spent that time in minutes in the direct care of this critically ill patient, excluding procedure time. ED Disposition Clinical Impression: Hypokalemia, Hypomagnesemia, Generalized weakness, Chronic renal insufficiency, stage II (mild) Disposition: DC-01 TO HOME OR SELFCARE Is pt being admited?: No Does the pt Need Aspirin: No Condition: Stable Instructions: Hypokalemia (ED), Hypomagnesemia (ED), Weakness (ED) Additional Instructions: Your potassium and magnesium levels should be checked by early next week. Rx as directed. Return to the emergency department any acute change or problems. Follow-up with usual physicians. Prescriptions: Magnesium 200 mg PO DAILY #30 tablet Potassium Chloride 8 meq PO DAILY #30 capsule.er Referrals: CARMEN HUDSON MD [Primary Care Provider] - 3-5 Days Time of Disposition: 14:27
[2019-07-09] MEDS ORDERED: POTASSIUM CHLORIDE ER 20 MEQ TAB PO ONE (12:19)
[2019-07-09] MEDS ORDERED: MAGNESIUM SULFATE 2 GM/50 ML BAG IV ONE (12:19)
[2019-07-09 12:36] LABS: Bilirubin,Urine NEG (Negative); Blood,Urine SM (Negative); Color,Urine Colorless (Yellow); Protein,Urine <15 mg/dL mg/dL (Negative); Urobilinogen,Urine < 2.0 mg/dL (<2.0)
[2019-07-09 12:43] LABS: RBC,Urine < 1.0 /HPF (0.0-6.0); WBC,Urine < 1.0 /HPF (0.0-6.0)
--- NOTE | 2019-07-09 13:41 | Cat Scan Report ---
CT head without contrast INDICATION : Altered mental status.. TECHNIQUE: Axial imaging performed from the skull apex through the skull base without the use of con trast. All CT scans at this location are performed using CT dose reduction for ALARA by means of aut omated exposure control. COMPARISON: None FINDINGS: Parenchyma: No acute intracranial hemorrhage or parenchymal abnormality. Ventricles: Ventricles are normal in size and appear symmetric. Soft tissues: Soft tissues including the orbits appear normal. Bones: No acute osseous abnormality. Sinuses: Sinuses and mastoid air cells are clear. IMPRESSION: No evidence of acute intracranial abnormality. If neurologic symptoms persist or additional evaluatio n is clinically indicated, an MRI may be considered for further evaluation. Signer Name: Romeo Rebolledo MD Signed: 07/09/2019 1:36 PM Workstation Name: [id number]
[2019-07-09 15:32] VITALS: BP 124/86
== END 2019-07-09 14:50 | disposition home or self-care (01) ==
LOC: ED 10:06
DX: E87.6 Hypokalemia (principal); E83.42 Hypomagnesemia; I12.9 Hypertensive chronic kidney disease with stage 1 through stage 4 chronic kidney disease, or unspecified chronic kidney disease; N18.2 Chronic kidney disease, stage 2 (mild); M19.90 Unspecified osteoarthritis, unspecified site; Z98.890 Other specified postprocedural states; Z79.899 Other long term (current) drug therapy
CPT/HCPCS: 36415; 70450; 71045; 80048; 80061; 80076; 81001; 82550; 82553; 83735; 83880; 84484; 85025; 85610; 85730; 93005; 93010; 96365; 99284; J3475

== ENCOUNTER 2020-10-27 11:31 | Outpatient (CLI) | payer BC ==
--- NOTE | 2020-10-27 14:51 | Cat Scan Report ---
CT ABDOMEN AND PELVIS WITHOUT CONTRAST HISTORY: ABDOMINAL PAIN,HEMATOCHEZIA. COMPARISON: 10/12/2016 report TECHNIQUE: CT images of the abdomen and pelvis were obtained without administration of intravenous co ntrast. All CT scans at this location are performed using CT dose reduction for ALARA by means of au tomated exposure control. FINDINGS: Lungs/bones: Lung bases are clear Abdomen/pelvis: Within limits of a noncontrast exam the liver, spleen, adrenal glands, pancreas and gallbladder appear normal. There is colonic diverticulosis throughout. No focal inflammatory change o r diverticulitis. Appendix appears normal. Urinary bladder and prostate appear normal. No dominant ad enopathy is seen. No renal or ureteral stones are seen. No evidence for bowel obstruction. Scoliotic curvature the spine with degenerative changes seen throughout. IMPRESSION: 1. Chronic diverticulosis. 2. Coronary artery disease and left coronary artery. Signer Name: Fidencio Montoya MD Signed: 10/27/2020 2:46 PM Workstation Name: [id number]
== END 2020-10-27 11:32 | disposition home or self-care (01) ==
LOC: CT 11:31
PROVIDERS: ATTEND Internal Medicine Gastroenterology
DX: K57.30 Diverticulosis of large intestine without perforation or abscess without bleeding (principal); I25.10 Atherosclerotic heart disease of native coronary artery without angina pectoris; I70.0 Atherosclerosis of aorta; K92.1 Melena
CPT/HCPCS: 74176